=== PATIENT | male | born 1995 | race Caucasian/White ===

== ENCOUNTER → 2017-05-15 | Outpatient (CLI) | payer OTHER ==
[~2017-05-15] MED LIST: AZIT500T47 PO; CIPR-344 PO; ROBC PO
--- NOTE | 2017-05-15 11:53 | RADIOLOGY IMAGING REPORT ---
FACILITY: [facility] [place] PATIENT NAME: Narendra Schafer : 1995 MR: [id number] V: [id number] EXAM DATE: ORDERING PHYSICIAN: VINCENT SALVADOR TECHNOLOGIST: Location: [facility] [place] Patient: Narendra Schafer : 1995 Visit/Account:[id number] Date of Sevice: 05/15/2017 KNEE LEFT W/O CONTRAST COMPARISON: None. HISTORY: Left knee pain, internal derangement, effusion. [place] a pop in the left knee playing soccer, left knee pain for one week. Patient reports 4 out of 10 left knee pain.. TECHNIQUE: Noncontrast multiplanar MRI of the left knee utilizing T1 weighted and fluid sensitive se quences. CONTRAST: None. FINDINGS: FLUID: A small simple effusion is present. There is no Lewis's cyst. No significant soft tissue tara a. MENISCI: The lateral meniscus is intact. There is a bucket-handle tear of the medial meniscus with a flipped fragment in the intercondylar notch in the usual location adjacent to the cruciate ligaments . There is additional tearing of the posterior root insertion of the medial meniscus, with abnormal i ntermediate signal and fraying of the posterior root insertion consistent with a complex tear, with a n adjacent internally septated parameniscal cyst measuring 10 x 10 mm on series 4 image 12. TENDONS/LIGAMENTS: The cruciate and medial collateral ligaments, lateral collateral ligamentous comp lucio and extensor mechanism are intact. The biceps and popliteus tendons are intact. MUSCLES: There is no muscle atrophy or edema. CARTILAGE: No full-thickness cartilage defects are seen. BONES: Normal marrow signal and alignment. OTHER: Negative. IMPRESSION: 1. Bucket-handle tear of the medial meniscus of the left knee with a flipped fragment in the interco ndylar notch adjacent to the cruciate ligaments. 2. Additional complex tear of the posterior root insertion of the medial meniscus with an adjacent 1 0 mm parameniscal cyst. 3. Small simple effusion. 4. No fracture or malalignment. Report Dictated By: Cem Agrawal at 05/15/2017 11:44 AM Report E-Signed By: Cem Agrawal at 05/15/2017 11:49 AM WSN:[id number]
== END ==
LOC: MRI 00:55
PROVIDERS: ATTEND Emergency Medicine Sports Medicine
DX: S83.212A Bucket-handle tear of medial meniscus, current injury, left knee, initial encounter (principal); M25.462 Effusion, left knee